=== PATIENT | female | born 1995 | race African-American/Black ===

== ENCOUNTER 2018-04-25 20:41 | Emergency (ER) | payer BC ==
[~2018-04-25] VITALS: Ht 160 cm; Wt 90.7 kg
[2018-04-25] MEDS ORDERED: TUMS (20:58)
[2018-04-25 21:01] LABS: URINE BILIRUBIN NEGATIVE (Negative); URINE BLOOD NEGATIVE (Negative); URINE CLARITY CLEAR; URINE COLOR YELLOW; URINE GLUCOSE-RANDOM* NEGATIVE (Negative); URINE KETONES NEGATIVE (Negative); URINE LEUKOCYTES-REFLEX NEGATIVE (Negative); URINE NITRITE-REFLEX NEGATIVE (Negative); URINE PROTEIN (DIPSTICK) NEGATIVE (Negative); URINE SPECIFIC GRAVITY 1.025 (1.005-1.035); URINE UROBILINOGEN 0.2 E.U./dl (0.2-1.0)
[2018-04-25 21:34] LABS: ABSOLUTE NEUTROPHILS 1.9 thou/uL (1.4-8.2); EOSINOPHILS 3.7 % (0.0-3.0); HEMATOCRIT 37.6 % (37.0-47.0); HEMOGLOBIN 12.5 gm/dL (12.0-15.0); LYMPHOCYTES 52.6 % (24.0-44.0); MCH 28.1 pg (26.0-34.0); MCHC 33.4 g/dL (28.0-37.0); MONOCYTES 6.1 % (1.0-8.0); PLATELET COUNT 297 thou/uL (150-400); POLYS 36.6 % (36.0-66.0); RBC 4.47 mil/uL (4.20-5.00); RDW 13.3 % (10.5-14.5); WBC 5.1 thou/uL (4.0-11.0)
[2018-04-25 21:41] LABS: CALCIUM 9.2 mg/dL (8.5-10.1); POTASSIUM 3.7 mmol/L (3.5-5.1)
[2018-04-25 21:46] LABS: ALBUMIN 3.8 g/dL (3.4-5.0); TOTAL BILIRUBIN 0.2 mg/dL (<0.1-1.0)
[2018-04-25] MEDS ORDERED: BENTYL 20 MG TA20 M1 PO (22:14)
[2018-04-25] MEDS ORDERED: IBUPROFEN 600600 M1 PO (22:15)
[2018-04-25 22:27] VITALS: BP 132/82
== END 2018-04-25 22:28 | disposition home or self-care (01) ==
LOC: ER 20:41
PROVIDERS: Physician Assistant
DX: K80.50 Calculus of bile duct without cholangitis or cholecystitis without obstruction (principal)

== ENCOUNTER 2018-09-09 18:52 | Emergency (ER) | payer BC ==
[~2018-09-09] VITALS: Ht 160 cm; Wt 86.2 kg
[~2018-09-09 18:52] MED LIST: BENTYL 20 MG TA20 M1 PO; IBUPROFEN 600600 M1 PO; TUMS
[2018-09-09 19:16] LABS: URINE BILIRUBIN NEGATIVE (Negative); URINE BLOOD NEGATIVE (Negative); URINE CLARITY CLEAR; URINE COLOR YELLOW; URINE GLUCOSE-RANDOM* NEGATIVE (Negative); URINE KETONES NEGATIVE (Negative); URINE LEUKOCYTES-REFLEX NEGATIVE (Negative); URINE NITRITE-REFLEX NEGATIVE (Negative); URINE PROTEIN (DIPSTICK) NEGATIVE (Negative); URINE UROBILINOGEN 0.2 E.U./dl (0.2-1.0)
[2018-09-09 20:27] LABS: ABSOLUTE NEUTROPHILS 2.3 thou/uL (1.4-8.2); BASOPHILS 1.3 % (0.0-2.0); EOSINOPHILS 2.4 % (0.0-3.0); HEMATOCRIT 36.2 % (37.0-47.0); HEMOGLOBIN 11.8 gm/dL (12.0-15.0); LYMPHOCYTES 48.4 % (24.0-44.0); MCH 27.6 pg (26.0-34.0); MCHC 32.7 g/dL (28.0-37.0); MCV 84.3 fL (80.0-100.0); MONOCYTES 6.7 % (1.0-8.0); PLATELET COUNT 305 thou/uL (150-400); POLYS 41.2 % (36.0-66.0); RDW 13.4 % (10.5-14.5); WBC 5.5 thou/uL (4.0-11.0)
[2018-09-09 20:34] LABS: CALCIUM 9.2 mg/dL (8.5-10.1); CREATININE 0.9 mg/dL (0.6-1.0); POTASSIUM 3.9 mmol/L (3.5-5.1)
[2018-09-09 20:40] LABS: ALBUMIN 3.5 g/dL (3.4-5.0); TOTAL BILIRUBIN 0.1 mg/dL (<0.1-1.0); TOTAL PROTEIN 7.6 g/dL (6.4-8.2)
[2018-09-09 21:35] VITALS: BP 123/68
== END 2018-09-09 21:45 | disposition home or self-care (01) ==
LOC: ER 18:52
PROVIDERS: Physician Assistant
DX: R10.32 Left lower quadrant pain (principal); K21.9 Gastro-esophageal reflux disease without esophagitis; K58.9 Irritable bowel syndrome, unspecified

== ENCOUNTER 2019-08-18 11:16 | Emergency (ER) | payer BC ==
[~2019-08-18] VITALS: Ht 160 cm; Wt 91.6 kg
[2019-08-18 12:00] VITALS: BP 138/102
== END 2019-08-18 12:01 | disposition home or self-care (01) ==
LOC: ER 11:16
DX: J10.1 Influenza due to other identified influenza virus with other respiratory manifestations (principal); K21.9 Gastro-esophageal reflux disease without esophagitis; K58.9 Irritable bowel syndrome, unspecified

== ENCOUNTER 2020-09-12 00:21 | Emergency (ER) | payer BC ==
[~2020-09-12] VITALS: Ht 160 cm; Wt 89.4 kg
[2020-09-12] MEDS ORDERED: LINZESS145 MCG PO (00:43)
[2020-09-12 01:01] LABS: URINE BILIRUBIN 1+ (Negative); URINE BLOOD TRACE (Negative); URINE CLARITY CLEAR; URINE COLOR YELLOW; URINE GLUCOSE-RANDOM* NEGATIVE (Negative); URINE KETONES 2+ (Negative); URINE LEUKOCYTES-REFLEX NEGATIVE (Negative); URINE NITRITE-REFLEX NEGATIVE (Negative); URINE PROTEIN (DIPSTICK) NEGATIVE (Negative); URINE SPECIFIC GRAVITY >= 1.030 (1.005-1.035); URINE UROBILINOGEN 0.2 E.U./dl (0.2-1.0)
[2020-09-12 01:08] LABS: ABSOLUTE NEUTROPHILS 5.1 thou/uL (1.4-8.2); BASOPHILS 0.3 % (0.0-2.0); EOSINOPHILS 0.3 % (0.0-3.0); HEMATOCRIT 39.7 % (37.0-47.0); HEMOGLOBIN 12.8 gm/dL (12.0-15.0); LYMPHOCYTES 8.8 % (24.0-44.0); MCH 27.6 pg (26.0-34.0); MCHC 32.1 g/dL (28.0-37.0); MONOCYTES 4.8 % (1.0-8.0); PLATELET COUNT 294 thou/uL (150-400); POLYS 85.8 % (36.0-66.0); RBC 4.62 mil/uL (4.20-5.00); RDW 12.7 % (10.5-14.5); WBC 5.9 thou/uL (4.0-11.0)
[2020-09-12 01:11] LABS: ICTOTEST (BILI CONFIRMATORY) Positive (Negative)
[2020-09-12 01:13] LABS: POTASSIUM 3.8 mmol/L (3.5-5.1)
[2020-09-12 01:23] LABS: CALCIUM 9.4 mg/dL (8.5-10.1)
[2020-09-12 02:42] VITALS: BP 105/59
[2020-09-12] MEDS ORDERED: ZOFRAN ODT4 MG PO (02:43)
[2020-09-12] MEDS ORDERED: DICYCLOMINE HCL20 MG PO (02:43)
== END 2020-09-12 03:00 | disposition home or self-care (01) ==
LOC: ER 00:21
PROVIDERS: Emergency Medicine
DX: K59.00 Constipation, unspecified (principal); T50.995A Adverse effect of other drugs, medicaments and biological substances, initial encounter; K21.9 Gastro-esophageal reflux disease without esophagitis; K58.9 Irritable bowel syndrome, unspecified; Y92.89 Other specified places as the place of occurrence of the external cause

== ENCOUNTER 2021-05-22 02:30 | Emergency (ER) | payer BC ==
[~2021-05-22] VITALS: Ht 160 cm; Wt 90.7 kg
[~2021-05-22 02:30] MED LIST changes: +DICYCLOMINE HCL20 MG PO; +LINZESS145 MCG PO; +ZOFRAN ODT4 MG PO
[2021-05-22 02:42] VITALS: BP 134/90
[2021-05-22] MEDS ORDERED: NOHOMEMEDICATIONS (02:45)
== END 2021-05-22 03:10 | disposition home or self-care (01) ==
LOC: ER 02:30
DX: L29.9 Pruritus, unspecified (principal); L25.9 Unspecified contact dermatitis, unspecified cause; K21.9 Gastro-esophageal reflux disease without esophagitis; F32.9 Major depressive disorder, single episode, unspecified

== ENCOUNTER 2021-10-09 20:00 | Emergency (ER) | payer BC ==
[~2021-10-09] VITALS: Ht 160 cm; Wt 85.7 kg
[~2021-10-09 20:00] MED LIST changes: +NOHOMEMEDICATIONS
[2021-10-09 20:34] LABS: URINE BLOOD NEGATIVE (Negative); URINE CLARITY SL CLOUDY; URINE COLOR YELLOW; URINE GLUCOSE-RANDOM* NEGATIVE (Negative); URINE KETONES 3+ (Negative); URINE LEUKOCYTES-REFLEX NEGATIVE (Negative); URINE NITRITE-REFLEX NEGATIVE (Negative); URINE PROTEIN (DIPSTICK) TRACE (Negative); URINE SPECIFIC GRAVITY >= 1.030 (1.005-1.035); URINE UROBILINOGEN 0.2 E.U./dl (0.2-1.0)
[2021-10-09 20:51] LABS: ICTOTEST (BILI CONFIRMATORY) Negative (Negative); URINE REDUCING SUBSTANCE NEGATIVE
[2021-10-09 20:52] LABS: URINE BILIRUBIN NEGATIVE (Negative)
[2021-10-09 22:05] LABS: ABSOLUTE NEUTROPHILS 4.1 thou/uL (1.4-8.2); BASOPHILS 0.3 % (0.0-2.0); EOSINOPHILS 1.3 % (0.0-3.0); HEMATOCRIT 40.5 % (37.0-47.0); HEMOGLOBIN 13.1 gm/dL (12.0-15.0); MCH 27.7 pg (26.0-34.0); MCHC 32.4 g/dL (28.0-37.0); MCV 85.5 fL (80.0-100.0); MONOCYTES 5.9 % (1.0-8.0); PLATELET COUNT 278 thou/uL (150-400); POLYS 81.5 % (36.0-66.0); RBC 4.74 mil/uL (4.20-5.00); RDW 13.4 % (10.5-14.5); WBC 5.1 thou/uL (4.0-11.0)
[2021-10-09 22:17] LABS: CREATININE 0.8 mg/dL (0.6-1.0); POTASSIUM 4.2 mmol/L (3.5-5.1)
[2021-10-09 22:23] LABS: TOTAL BILIRUBIN 0.4 mg/dL (0.2-1.0)
[2021-10-09] MEDS ORDERED: ZOFRAN ODT4 MG PO (23:10)
[2021-10-10 05:04] VITALS: BP 120/68
== END 2021-10-10 00:40 | disposition home or self-care (01) ==
LOC: ER 20:00
PROVIDERS: Emergency Medicine
DX: E86.0 Dehydration (principal); R11.2 Nausea with vomiting, unspecified; R82.4 Acetonuria; K21.9 Gastro-esophageal reflux disease without esophagitis